=== PATIENT | female | born 1965 | race Caucasian/White ===

== ENCOUNTER 2017-03-05 21:04 | Outpatient (CLI) | payer MEDICAID | END 2017-03-05 21:05 | disposition critical access hospital (66) | LOC: EMS 21:04 | PROVIDERS: ATTEND Surgery | DX: S05.91XA Unspecified injury of right eye and orbit, initial encounter (principal); W01.198A Fall on same level from slipping, tripping and stumbling with subsequent striking against other object, initial encounter; Y93.01 Activity, walking, marching and hiking; Y92.838 Other recreation area as the place of occurrence of the external cause | CPT/HCPCS: A0425; A0429 ==

== ENCOUNTER 2017-03-05 21:26 | Emergency (ER) | payer MEDICAID ==
[~2017-03-05 21:26] MED LIST: PROPARACAINE 0.5% OPHTH DROPS 15 ML ONE
[2017-03-05] MEDS ORDERED: HYDROcod/ACETAM 5/325 MG TABLET PO STA (23:18)
--- NOTE | 2017-03-05 23:39 | CT Preliminary Report ---
Exam: CT Orbits W/O IMPRESSION: No fracture, intraorbital hematoma or retained foreign body identified. [facility] SITE ID: [id number]
--- NOTE | 2017-03-05 23:41 | CT Report ---
EXAM: CT ORBITS WITHOUT CONTRAST EXAM DATE: 03/05/2017 11:07 PM. CLINICAL HISTORY: Right eye injury with tree branch. COMPARISONS: None. TECHNIQUE: Thin-section axial images were acquired of the orbits without contrast. Post-processing: C oronal and sagittal reformats. Other: None. In accordance with CT protocol optimization, one or more of the following dose reduction techniques w ere utilized for this exam: automated exposure control, adjustment of mA and/or KV based on patient s ize, or use of iterative reconstructive technique. FINDINGS: Bones: No fracture or bone lesion. Temporomandibular Joints: The temporomandibular joints are symmetric and normally located. Sinuses: Normal. No mucosal thickening or fluid levels. Other: No orbital hematoma or retained foreign body identified. IMPRESSION: No fracture, intraorbital hematoma or retained foreign body identified. [facility] Referring Provider Line: [phone] SITE ID: [id number]
[2017-03-05] MEDS ORDERED: ERYTHROMYCIN OPHTH OINT 1 GM TUBE RIGHTEYE STA (23:47)
[2017-03-06] MEDS ORDERED: HYDROcod/ACETAM 5/325 MG TABLET ONE (00:18)
--- NOTE | 2017-03-06 00:20 | ED Physician Documentation ---
PD HPI OPHTHO - Stated complaint Stated Complaint: EYE INJURY - Chief complaint Chief Complaint: Heent - History obtained from History obtained from: Patient - History of Present Illness Timing - onset: Today (just [employer]) Timing - details: Abrupt onset (she fell on a trail and landed into a stick from the ground, with pain and bleeding lower lateral right eye/eyelid.) Location: Right Quality / character: Burning Associated symptoms: No: Photophobia Contributing factors: Penetrating trauma (stick poked into right lower lateral eyelied). 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 - Present Medications Home Medications: Ambulatory Orders Medication Instructions Recorded Confirmed Estradiol 1 mg PO DAILY 08/20/14 03/05/17 HYDROcod/ACETAM 5/325 [Vicodin 1 tab PO Q6HR 08/20/14 03/05/17 5/325] Thyroid,Pork [[place] Thyroid] 90 mg PO DAILY 08/20/14 03/05/17 - Allergies Allergies/Adverse Reactions: Allergies Allergy/AdvReac Type Severity Reaction Status Date / Time No Known Drug Allergies Allergy Verified 03/05/17 21:48 - Social History Does the pt smoke?: No Smoking Status: Never smoker Does the pt drink ETOH?: Yes Does the pt have substance abuse?: No - Immunizations Immunizations are current?: No - POLST Patient has POLST: No PD ED PE NORMAL - Vitals Vital signs reviewed: Yes - General General: Alert and oriented X 3, Well developed/nourished, Other (appears in pain; improved with Proparacaine drops. ) - HEENT HEENT: PERRL, EOMI, Ears normal, Pharynx benign, Dentition benign, Other (there is 6-10 o'clock subconj hemorrhage noted with moderate blood. There is at 8 oclock site a 4-5 mm tear of the conjunctiva with mild bleeding. No FB seen. The shape of the iris is normal. ) Results - Vitals Vitals: Vital Signs - 24 hr 03/05/17 03/06/17 21:28 00:58 Temperature 36.6 C Heart Rate 85 63 Respiratory 16 16 Rate Blood Pressure 142/79 H 124/68 O2 Saturation 99 97 Oxygen O2 Source Room air - Rads (name of study) orbit CT Radiology: Prelim report reviewed (globe appears normal. ) PD MEDICAL DECISION MAKING - ED course Complexity details: reviewed results, considered differential (appears conjunctivall lac and subconj hemorrhage. Pupil good. CT normal. IOP 18. EOMs intact.), d/w healthcare network consultant (Fernandez, operations management trainee Ophtho) Departure - Departure Disposition: Home, Self Care Clinical Impression: Laceration of right conjunctiva Qualifiers: Encounter type: initial encounter Qualified Code(s): S05.31XA - Ocular laceration without prolapse or loss of intraocular tissue, right eye, initial encounter Subconjunctival hematoma Qualifiers: Laterality: right Qualified Code(s): H11.31 - Conjunctival hemorrhage, right eye Condition: Stable Record reviewed to determine appropriate education?: Yes Instructions: ED Eye Injury Subconj Hemorrhage Follow-Up: Lito Gamboa MD [Provider Admit Priv/Credential] - Comments: Use the Erythromycin ointment 4 times daily for the right eye. Call internet marketing specialist in the morning to arrange follow up exam tomorrow. Tylenol or Ibuprofen as needed for pains. Discharge Date/Time: 03/06/17 01:06
[2017-03-06] MEDS ORDERED: ERYTHROMYCIN OPHTH OINT 1 GM TUBE ONE (00:55)
[2017-03-06 01:00] VITALS: BP 124/68
== END 2017-03-06 01:06 | disposition home or self-care (01) ==
LOC: EDUNIT# → ED 21:26
DX: S05.31XA Ocular laceration without prolapse or loss of intraocular tissue, right eye, initial encounter (principal); S05.11XA Contusion of eyeball and orbital tissues, right eye, initial encounter; W01.198A Fall on same level from slipping, tripping and stumbling with subsequent striking against other object, initial encounter; Y93.01 Activity, walking, marching and hiking; Y92.821 Forest as the place of occurrence of the external cause; E03.9 Hypothyroidism, unspecified
CPT/HCPCS: 70480; 99283; A9270; J3490